=== PATIENT | female | born 1980 | race Caucasian/White ===

== ENCOUNTER → 2016-10-01 | Outpatient (CLI) | payer BC ==
[~2016-10-01] MED LIST: FOLI20CA PO; LABE100T16 PO; LAMO150T32 PO; LMCUNK PO; NRN600 PO; PREN-83 PO; ZCRUNK
== END | disposition home or self-care (01) ==
LOC: C.PAPS 07:45
PROVIDERS: ATTEND Obstetrics & Gynecology
DX: Z39.2 Encounter for routine postpartum follow-up (principal)

== ENCOUNTER → 2017-08-03 | Outpatient (CLI) | payer OTHER, BC ==
--- NOTE | 2017-08-03 09:29 | DIAGNOSTIC IMAGING REPORT ---
L-SPINE MIN 4 VIEWS ROUTINE HISTORY: Pain. Neuropathy. M54.5 Low back [id number] COMPARISON: None. FINDINGS: There is no fracture. No subluxation. Mild levoscoliosis. No evidence for compression deformity. IMPRESSION: Mild scoliosis. Otherwise negative study The above report was generated using voice recognition software. It may contain grammatical, syntax or spelling errors. Electronically signed by: Brennan Carr M.D. 08/03/2017 9:27 AM Dictated Date/Time: 08/03/2017 9:26 AM
== END | disposition home or self-care (01) ==
LOC: C.RAD1850 08:51
PROVIDERS: ATTEND Internal Medicine
DX: M54.5 Low back pain (principal)

== ENCOUNTER → 2017-09-25 | Outpatient (CLI) | payer OTHER ==
[~2017-09-25] MED LIST changes: +LAMO150T PO; -LAMO150T32 PO
--- NOTE | 2017-09-26 05:45 | SPLIT NIGHT TECHNICIAN REPORT ---
[facility] Split Night Polysomnogram - Other Wood Processing Machine Operator Report Study date: 09/25/2017 Referring Physician: DR. GROSSMAN Name: CALLIE VILLAGRAN Other Wood Processing Machine Operator: Raymond Dewitt [facility]. Date of : 1980 Height: 37 years, Height 5' 4" Sex: Female Weight: 225 lbs Age: 37 Neck Circum: 15.5 inches BMI: Medications: 38.62 ABILIFY 10 MG, AZELASTINE HCL 0.1%, DICLOFENAC SODIUM 1%, FLUTICASONE PROPIONATE 50 MCG/ACT, LAMICTAL 150 MG, LORAZEPAM 0.5 MG, MELOXICAM 15 MG, PANTOPRAZOLE SODIUM 20 MG, TRAMADOL HCL 50 MG Patient History PATIENT HAS HISTORY OF FATIGUE, SNORING, EXCESSIVE DAYTIME SLEEPINESS, CHRONIC SINUSITIS AND WITNESSED APNEAS. SHE IS HERE TODAY FOR AN EVALUATION FOR BATSHEVA. ESS = 11 RM 6 Parameters Monitored NPSG: E1-M2, E2-M1, Fp1-M2, Fp2-M1, F3-M2, F4-M2, F4-M1, C3-M2, C4-M2, C4-M1, O1-M2, O2-M2, O2-M1, T3-M2, T4-M1, P3-M2, P4-M1, CHIN1, CHIN2, HR, EKG, Legs, PFLOW, SNOR, FLOW, CFLOW, Tidal Volume, THOR, ABDO, SpO2, PLTH, CPRESS, ETCO2 Wave, ETCO2, pH SLEEP SUMMARY DATA DIAGNOSTIC TREATMENT Lights Out: 9:59:23 PM 12:37:23 AM Lights On: 12:29:53 AM 5:13:53 AM Total Recording Time (TRT): 151.0 min. 277.0 min. Total Sleep Time (TST): 138.5 min. 243.5 min. NREM Time: 138.5 min. 147.0 min. REM Time: 0.0 min. 96.5 min. Sleep Period Time (SPT): 142.5 min. 251.0 min. Sleep Efficiency (SE): 92 % 88 % Sleep Latency: 8.0 min. 11.0 min. Arousal Index: 20.8 10.3 PAP Treatment Levels: 4, 5, 6, 7, 8, 9, 10, 11 * Optimal Pressure(s) SLEEP STAGING DATA DIAGNOSTIC TREATMENT Duration (min) TST % Duration (min) TST % Stage Wake: 12.0 min. -- 33.5 min. -- WASO: 4.0 min. -- 7.5 min. -- NREM: 138.5 min. 100 % 147.0 min. 60 % Stage N1: 5.0 min. 4 % 10.0 min. 4 % Stage N2: 133.5 min. 96 % 105.5 min. 43 % Stage N3: 0.0 min. 0 % 31.5 min. 13 % REM: 0.0 min. 0 % 96.5 min. 40 % POSITIONAL DATA Event Count Index Event Count Index Supine: 138 96 38 21.9 Supine NREM: 138 96.2 37 30.1 Supine REM: N/A N/A 1 2 Non-Supine: 62 71.0 30 12.1 Non-Supine NREM: 62 71.0 14 10.6 Non-Supine REM: N/A N/A 16 13.6 AROUSAL SUMMARY DATA: Event Count Index Event Count Index Apnea Arousals: 5 18.6 13 5.7 Hypopnea Arousals: 22 9.5 6 1.5 Snore Arousals: 9 3.9 8 2.0 PLM Arousals: 1 0.4 1 0.2 Non-Specific Arousals: 10 4.3 15 3.7 Total Arousals: 48 20.8 42 10.3 MYOCLONUS (PLM) Event Count Index Event Count Index PLM: 2 0.9 15 3.7 PLM AROUSAL: 1 0.4 1 0.2 PLM W/O AROUSAL 2 0.9 14 3.4 PLM W/RESP EVENT 0 0.0 2 0.0 MYOCLONUS (PLM) Event Count Index Event Count Index LM: 4 11.7 22 5.4 LM AROUSAL: 4 1.7 0 0.0 LM W/O AROUSAL LM W/RESP EVENT LM NON SPECIFIC 15 6.5 31 7.6 HEART RATE DATA DIAGNOSTIC TREATMENT Sleep (bpm): 73 75 REM (bpm): N/A 93 NREM (bpm): 89 92 Tachycardia Count: 0 0 Tachycardia Duration: 0.00 0 Bradycardia Count: 0 0 Bradycardia Duration: 0.00 0 DIAGNOSTIC PORTION TREATMENT PORTION RESPIRATORY DATA Event Count Index Event Count Index AHI: -- 86.6 -- 16.3 RDI: -- 86.6 -- 17 Obstructive Apnea: 43 18.6 18 4.4 Central Apnea: 0 0.0 3 0.7 Mixed Apnea: 0 0.0 2 0.5 Hypopnea: 157 68.0 43 10.6 RERA: 0 0.0 2 0.5 Total Apneas: 43 18.6 23 5.7 RESPIRATORY DATA REM NREM SLEEP REM NREM SLEEP Supine Position: Obstructive Apneas: N/A 36 36 0 17 17 Central Apneas: N/A 0 0 0 3 3 Mixed Apneas: N/A 0 0 0 2 2 Hypopneas: N/A 102 102 1 15 16 RERA N/A 0 0 0 0 0 Total Supine Events: N/A 138 138 1 37 38 Supine AHI: N/A 96.2 96 2 30.1 21.9 Supine RDI: N/A 96.2 96.2 2.0 30.1 21.9 REM NREM SLEEP REM NREM SLEEP Non-Supine Position: Obstructive Apneas: N/A 7 7 1 0 1 Central Apneas: N/A 0 0 0 0 0 Mixed Apneas: N/A 0 0 0 0 0 Hypopneas: N/A 55 55 14 13 27 RERA N/A 0 0 1 1 2 Total Supine Events: N/A 62 62 16 14 30 Supine AHI: N/A 71.0 71.0 13.6 10.6 12.1 Supine RDI: N/A 71.0 71.0 14.5 11.5 12.9 OXYGEN DESTAURATION DATA: Event Count Index Event Count Index REM Desaturations: N/A N/A 16 9.9 NREM Desaturations: 194 84.0 44 18.0 SNORE DATA DIAGNOSTIC TREATMENT Snore Time: 12.1 12:48:23 AM Snore TST%: 4 4 Snore Arousal Count: 9 8 Snore Arousal Index: 3.9 2.0 Desaturation Event Summary: Minimum %SpO2 Event Count Mean/Min/Max Duration(sec.) Desaturation Index % Time In Bed > 90 225 25.9 / 5.3 / 64.1 43.5 72.7 86 - 90 103 21.4 / 6.3 / 62.4 64.4 22.5 81 - 85 0 N/A 0.0 4.1 76 - 80 0 N/A 0.0 0.7 71 - 75 0 N/A 0.0 0.0 66 - 70 0 N/A 0.0 0.0 61 - 65 0 N/A 0.0 0.0 56 - 60 0 N/A 0.0 0.0 51 - 55 0 N/A 0.0 0.0 < 50 0 N/A 0.0 0.0 OXYGEN SATURATION DATA DIAGNOSTIC TREATMENT SpO2 Mean Sleep: 89 % 93 % SpO2 Mean REM: N/A % 93 % SpO2 Mean NREM: 89 % 92 % SpO2 Minimum Sleep: 76 % 81 % SpO2 Minimum REM: N/A % 85 % SpO2 Minimum NREM: 76 % 81 % Time Below 90% (TST): 67.6 10.7 Time Below 88% (TST): 38.3 2.9 Total REM NREM Awake <50% 0.0 min. 0.0 min. 0.0 min. 0.0 min. 51 - 60% 0.0 min. 0.0 min. 0.0 min. 0.0 min. 61 - 70% 0.0 min. 0.0 min. 0.0 min. 0.0 min. 71 - 80% 3.0 min. 0.0 min. 3.0 min. 0.0 min. 81 - 90% 113.7 min. 6.9 min. 103.9 min. 2.9 min. 91 - 100% 310.3 min. 89.6 min. 178.6 min. 42.1 min. Average 92 93 91 93 Minimum SpO2 76 85 76 88 Desaturation Event Index 36.0 9.9 50.0 2.7 # Desat. Events below 89% 184 6 178 0 Time(%) with Saturation below 89% 13.3 0.3 12.9 0.1 Time(min.) with Saturation below 89% 57.0 1.2 55.2 0.6 Recording Other Wood Processing Machine Operator Comments: Mrs. Villagran slept in the right, left and supine positions. No cardiac arrhythmia noted. Leg movements noted. No bruxism noted. Snoring was noted and scored as a 5 on a scale of 1 through 5. (0=no snoring, 5=snoring loud enough to be heard through a closed door or down the loc[address] way) At 12:29 am, Mrs. Villagran has met specific Split-Night criteria during the diagnostic portion of this study. CPAP was initiated at +4 CMH2O and up-titrated to an optimal level of +11 CMH2O, which nearly eliminated all respiratory events and snoring. A Resmed F10 full face size medium mask was used during titration Mrs. Villagran awoke to use the restroom 0 times during the night. Mrs. Villagran stated I slept as well as I do when I am in my own bed. The final report will be interpreted and signed by a sleep physician. The completed physician report will then be placed in the patient medical record. Therapy Event: Therapy (cm H20) 0 4 5 6 7 8 9 10 11 Total Time at Pressure (min.) 150.5 22.7 10.1 14.2 11.6 10.3 61.7 101.6 44.2 TST at Pressure (min.) 138.5 11.7 10.1 14.2 11.6 10.3 57.2 100.6 27.7 # Periods 1 1 1 1 1 1 1 1 1 Sleep Onset (min.) 8.0 11.0 0.0 0.0 0.0 0.0 0.0 0.0 0.0 REM Onset (min.) N/A N/A N/A N/A 5.4 0.0 0.0 7.8 0.0 Sleep Efficiency % 92 51 100 100 100 100 92 99 62 Wakefulness (%) 8.0 48.4 0.0 0.0 0.0 0.0 7.3 1.0 37.3 Wakefulness (min.) 12.0 11.0 0.0 0.0 0.0 0.0 4.5 1.0 16.5 NREM 1 (%) 3.3 18.7 7.4 0.0 0.0 0.0 4.1 1.5 2.3 NREM 1 (min.) 5.0 4.2 0.8 0.0 0.0 0.0 2.5 1.5 1.0 NREM 2 (%) 88.7 33.0 92.6 100.0 46.7 0.0 41.7 42.1 1.1 NREM 2 (min.) 133.5 7.5 9.4 14.2 5.4 0.0 25.7 42.8 0.5 NREM 3 (%) 0.0 0.0 0.0 0.0 0.0 0.0 31.6 11.8 0.0 NREM 3 (min.) 0.0 0.0 0.0 0.0 0.0 0.0 19.5 12.0 0.0 REM (%) 0.0 0.0 0.0 0.0 53.3 100.0 15.4 43.6 59.3 REM (min.) 0.0 0.0 0.0 0.0 6.2 10.3 9.5 44.3 26.2 # Arousals 48 11 9 2 2 1 7 9 1 Arousal Index 20.8 56.2 53.4 8.4 10.3 5.8 7.3 5.4 2.2 # Snore 466 34 47 68 27 23 22 118 62 Snore Index 201.9 173.6 278.8 287.3 139.1 133.8 23.1 70.4 134.2 AHI 86.6 86.8 89.0 16.9 41.2 34.9 12.6 1.8 2.2 AHI Supine 96.2 86.8 89.0 39.8 N/A N/A N/A 2.4 2.2 AHI Non-Supine 71.0 N/A N/A 6.2 41.2 34.9 12.6 1.2 N/A NREM AHI 86.6 86.8 89.0 16.9 33.1 N/A 11.3 2.1 0.0 REM AHI N/A N/A N/A N/A 48.3 34.9 19.0 1.4 2.3 RDI 86.6 86.8 89.0 16.9 51.5 34.9 12.6 1.8 2.2 # Obstructive 43 8 9 0 1 0 0 0 0 # Central Ap 0 3 0 0 0 0 0 0 0 # Mixed 0 0 1 1 0 0 0 0 0 # Hypopneas 157 6 5 3 7 6 12 3 1 RERAS 0 0 0 0 2 0 0 0 0 Total Respiratory Events 200 17 15 4 10 6 12 3 1 Time Below SpO2 89.00% (min.) 51.6 2.0 1.1 0.1 0.6 0.6 0.1 0.3 0.0 Mean NREM SpO2 (%) 89 91 91 91 92 N/A 92 93 94 Mean REM SpO2 (%) N/A N/A N/A N/A 91 92 92 93 94 Mean Sleep SpO2 (%) 89 91 91 91 91 92 92 93 94 Min NREM SpO2 (%) 76 81 86 88 89 N/A 88 86 92 Min REM SpO2 (%) N/A N/A N/A N/A 86 85 89 89 91 Position Supine (min.) 86.1 11.7 10.1 4.5 0.0 0.0 0.0 50.1 27.7 Position Non-supine (min.) 52.4 0.0 0.0 9.7 11.6 10.3 57.2 50.5 0.0 LM Index Sleep 12.6 15.3 5.9 33.8 56.7 11.6 7.3 3.0 0.0 LM Index NREM 12.6 15.3 5.9 33.8 88.3 N/A 7.5 3.2 0.0 LM Index REM N/A N/A N/A N/A 29.0 11.6 6.3 2.7 0.0 Mean Heart Rate (bpm) 73 75 73 73 76 74 76 75 72 Min Heart Rate (bpm) 58 68 68 69 62 58 68 66 64
--- NOTE | 2017-09-26 09:43 | POLYSOMNOGRAPH REPORT ---
CLINICAL DATA: A 37-year-old female with a BMI of 38.[address] Aldana, Dr. Roach and myself with a history of excessive snoring, fatigue, daytime sleepiness, chronic sinusitis and witnessed apnea. Her [place] Sleepiness Score was 11/24. This was a split night study. SLEEP ARCHITECTURE: For the diagnostic portion of the study, sleep period was 142.5 minutes. Total sleep time was 138.5 minutes, all non-REM sleep. Sleep latency was 8 minutes. Sleep efficiency was 92%. Sleep consisted of stage N1 4% and N2 96%. For the treatment portion of the study, sleep period was 251 minutes. Total sleep time was 243.5 minutes divided between 147 minutes of non-REM sleep and 96.5 minutes of REM sleep. Sleep latency was 11 minutes. Sleep efficiency was 88%. Sleep consisted of stage N1 4%, stage N2 43%, stage N3 13%, and REM 40%. AROUSAL DATA: Prior to treatment, 48 arousals were recorded for an index of 21 per hour. During treatment, 42 arousals were recorded for an index of 10.3 per hour. PLM DATA: Prior to treatment, 15 limb movements during sleep were noted for an index of 6.5 per hour. During treatment, 11 limb movements were noted for an index of 7.6 per hour. EKG: Heart rate ranged from 73-93 beats per minute. No arrhythmias were noted. RESPIRATORY DATA: Severe sleep apnea was documented prior to treatment. The diagnostic AHI was 86.6. There were 43 obstructive apneic episodes and 157 hypopneic episodes. The average AHI with treatment was 16.3. There were 18 obstructive, 3 central, and 2 mixed apneic episodes and 43 hypopneic episodes. INSURANCE AGENT'S COMMENTS AND TREATMENT SUMMARY: The patient slept in the right, left, and supine positions. Snoring was severe, rated at 5 on a scale of 1-5. At 12:29 a.m., the patient met split night criteria. She used a ResMed F10 full facemask medium size. She was titrated up to 11 cm water pressure. At the final pressure setting, she slept for 27.7 minutes with an AHI of 2.2. IMPRESSION: Severe sleep apnea/hypopnea with a diagnostic AHI of 86.6 corrected with a CPAP 11 cm of water pressure using a ResMed F10 full face size medium mask. RECOMMENDATIONS: The patient will be seen back in followup and started on CPAP at the above noted levels. MTDD
== END | disposition home or self-care (01) ==
LOC: C.NEUR 21:00
PROVIDERS: ATTEND Internal Medicine Pulmonary Disease
DX: G47.30 Sleep apnea, unspecified (principal)

== ENCOUNTER → 2018-01-20 | Outpatient (CLI) | payer OTHER ==
--- NOTE | 2018-01-20 10:50 | DIAGNOSTIC IMAGING REPORT ---
FUSION CT SINUSES W/O CLINICAL HISTORY: J32.9 Chronic sinusitis Patient has severe nasal congestion. COMPARISON STUDY: No previous studies for comparison. FINDINGS: Images were performed in the axial plane. Sagittal and coronal reformatted images were reviewed. The study was performed in a dose reduction fashion according to the principles of ALARA There is no evidence of hydrocephalus. No orbital lesions are visualized. The mastoid air cells are symmetrically aerated. The middle ear cavities are well aerated. There are postsurgical changes of medial antrectomies and partial ethmoidectomies. There is minimal mucosal thickening within the left maxillary sinus. There are no air-fluid levels to indicate acute sinusitis. The created nasomaxillary apertures are widely patent bilaterally. There is mucosal disease involving the left frontal sinus. Sphenoid sinus is clear. The ethmoid notches are protected. The right olfactory fossa measures 5 mm in depth. The left olfactory fossa measures 6 mm in depth. IMPRESSION: 1. No evidence of acute sinusitis 2. Mucosal thickening involving the left frontal sinus. Minimal mucosal thickening involving the left maxilla sinus 3. Postsurgical changes. The created nasomaxillary apertures are widely patent bilaterally Electronically signed by: Juwan Light M.D. 01/20/2018 10:48 AM Dictated Date/Time: 01/20/2018 10:44 AM
== END | disposition home or self-care (01) ==
LOC: C.CTS 09:45
PROVIDERS: ATTEND Physician Assistant
DX: J32.9 Chronic sinusitis, unspecified (principal)